=== PATIENT | female | born 1975 | race Caucasian/White ===

== ENCOUNTER 2017-07-16 15:37 | Emergency (ER) | payer MEDICAID ==
[~2017-07-16] VITALS: Ht 144.8 cm; Wt 46.5 kg
[~2017-07-16 15:37] MED LIST: ADAL40KI IM; CEPH500C5 PO; CYCL-394 PO; GABA-330 PO; IBUP-1051 PO; NAPR-56 PO; ORPH100T2 PO; centrum
[2017-07-16 16:07] VITALS: BP 106/71
== END 2017-07-16 17:59 | disposition home or self-care (01) ==
LOC: ER 15:37
DX: L73.9 Follicular disorder, unspecified (principal); E11.9 Type 2 diabetes mellitus without complications; G89.29 Other chronic pain; M19.90 Unspecified osteoarthritis, unspecified site; F12.10 Cannabis abuse, uncomplicated; Z56.0 Unemployment, unspecified; Z87.442 Personal history of urinary calculi; Z88.5 Allergy status to narcotic agent; Z79.899 Other long term (current) drug therapy
CPT/HCPCS: 99281

== ENCOUNTER 2021-12-22 13:34 | Emergency (ER) | payer MEDICAID ==
[~2021-12-22] VITALS: Ht 144.8 cm; Wt 52.3 kg
[~2021-12-22 13:34] MED LIST changes: -CEPH500C5 PO
[2021-12-22 13:58] VITALS: BP 127/79
[2021-12-22] MEDS ORDERED: TRIA15CR61 TOP (15:31)
[2021-12-22] MEDS ORDERED: CETI10TA19 PO (15:31)
== END 2021-12-22 15:41 | disposition home or self-care (01) ==
LOC: ER 13:34
DX: L51.9 Erythema multiforme, unspecified (principal); E11.9 Type 2 diabetes mellitus without complications; M19.90 Unspecified osteoarthritis, unspecified site; G89.29 Other chronic pain; F12.90 Cannabis use, unspecified, uncomplicated; Z87.442 Personal history of urinary calculi; Z98.890 Other specified postprocedural states; Z56.0 Unemployment, unspecified; Z88.5 Allergy status to narcotic agent; Z79.899 Other long term (current) drug therapy
CPT/HCPCS: 99283